=== PATIENT | female | born 1980 | race Caucasian/White ===

== ENCOUNTER 2016-05-08 07:20 | Emergency (ER) | payer MEDICAID ==
[~2016-05-08] VITALS: Wt 71.0 kg
[2016-05-08] MEDS ORDERED: ACETAMINOPHEN 500 MG TAB PO STA (08:02)
[2016-05-08] MEDS ORDERED: BEN25 PO (09:59)
[2016-05-08] MEDS ORDERED: OSLT75C PO (09:59)
[2016-05-08] MEDS ORDERED: ACET325T33 PO (09:59)
[2016-05-08 10:11] VITALS: BP 118/67; PULSE 89; RESP 18; TEMP 98.3
--- NOTE | 2016-05-08 12:15 | ERD ---
ER Documentation Chief Complaint Date/Time DATE: 05/08/16 TIME: 12:07 Chief Complaint FLU LIKE SYMPTOMS 29 WEEKS PREG HPI This is a 35-year-old female presenting to the emergency department for cough, rhinorrhea and headache 2 days. Patient states she has tactile fever at home. Did not check her temperature at home. Cough is mild and nonproductive. Headache is mild. This is not the worst headache she is ever had. Patient is currently 29 weeks with last menstrual period 11/16/2015. Patient is a A0. Denies any pelvic cramping or vaginal bleeding. Last appointment with [facility] was 5 days ago in which a pelvic ultrasound was done and patient states everything was "normal." No visual changes. no changes in memory, mood or behavior. No rashes. No dysuria or hematuria. No nausea, vomiting or diarrhea. Patient states she took Tylenol last night however continues to have symptoms. Denies chest pain, shortness of breath or difficulty breathing. No wheezing. ROS All systems reviewed and are negative except as per history of present illness. Medications Home Meds Active Scripts Acetaminophen* (Tylenol*) 325 Mg Tablet, 1 TAB PO Q6 Y for PAIN AND OR ELEVATED TEMP, #20 TAB Prov:JOYCELYN SIMMONS NP 05/08/16 Diphenhydramine Hcl* (Benadryl*) 25 Mg Cap, 25 MG PO Q6, #10 CAP Prov:JOYCELYN SIMMONS NP 05/08/16 Oseltamivir Phosphate* (Tamiflu*) 75 Mg Capsule, 75 MG PO BID for 5 Days, CAP Prov:JOYCELYN SIMMONS NP 05/08/16 Allergies Allergies: Coded Allergies: No Known Allergy (Unverified , 05/08/16) PMhx/Soc Medical and Surgical Hx: pt denies Medical Hx, pt denies Surgical Hx Hx Alcohol Use: No Hx Substance Use: No Hx Tobacco Use: No Smoking Status: Never smoker Physical Exam Vitals Vital Signs Date Time Temp Pulse Resp B/P Pulse Ox O2 Delivery O2 Flow Rate FiO2 05/08/16 10:11 98.3 89 18 118/67 98 Room Air 05/08/16 07:23 99.1 105 18 126/75 98 Physical Exam Const: Alert, no acute distress Head: Atraumatic Eyes: Normal Conjunctiva ENT: Normal External Ears, Nose and Mouth. TMs normal bilaterally. No erythema or exudate posterior pharynx. Neck: Full range of motion..~ No meningismus. Resp: Clear to auscultation bilaterally. No wheezing, rhonchi or crackles. Cardio: Regular rate and rhythm, no murmurs Abd: Soft, non tender, non distended. Normal bowel sounds Skin: No petechiae or rashes Back: No midline or flank tenderness Ext: No cyanosis, or edema Neur: Awake and alert Psych: Normal Mood and Affect Results 24 hrs Current Medications Medications (Trade) Dose Ordered Sig/Aura Route PRN Reason Start Time Stop Time Status Last Admin Dose Admin Acetaminophen (Tylenol Tab) 500 mg ONCE STAT PO 05/08/16 08:02 05/08/16 08:04 DC 05/08/16 08:07 Procedures/MDM ED COURSE: The patient was stable throughout ED course. I kept the patient and/or family informed of laboratory and diagnostic imaging results throughout the ED course. Tylenol given Microbiology influenza A negative Influenza B positive MDM:This is a 35-year-old female presenting to the emergency department for cough, rhinorrhea and headache 2 days. Physical exam is overall normal. Lung exam unremarkable. ENT exam is unremarkable. Temp of 99.1F upon arrival to ED. Tylenol given while in the ED. Influenza swab is positive for influenza B. No pelvic cramping or vaginal bleeding. Patient's vital signs remained stable. Patient is stable for discharge home. Patient's diagnosis is influenza. Patient is appropriate for outpatient management and will be given prescription for Tamiflu, Tylenol and Benadryl. Instructed patient to follow-up with primary care provider in the next 2-3 days for reassessment. Return to ED for any high fever, chest pain, difficulty breathing, shortness breath, wheezing, vomiting, diarrhea, abdominal pain or any new or worsening symptoms. Patient verbalizes understanding. All questions answered at discharge. Departure Diagnosis: Primary Impression: Influenza Condition: Stable Patient Instructions: Influenza (Flu) and Referrals: COMMUNITY CLINICS YOU HAVE RECEIVED A MEDICAL SCREENING EXAM AND THE RESULTS INDICATE THAT YOU DO NOT HAVE A CONDITION THAT REQUIRES URGENT TREATMENT IN THE EMERGENCY DEPARTMENT. FURTHER EVALUATION AND TREATMENT OF YOUR CONDITION CAN WAIT UNTIL YOU ARE SEEN IN YOUR DOCTORS OFFICE WITHIN THE NEXT 1-2 DAYS. IT IS YOUR RESPONSIBILITY TO MAKE AN APPOINTMENT FOR FOLOW-UP CARE. IF YOU HAVE A PRIMARY DOCTOR --you should call your primary doctor and schedule an appointment IF YOU DO NOT HAVE A PRIMARY DOCTOR YOU CAN CALL OUR PHYSICIAN REFERRAL HOTLINE AT IF YOU CAN NOT AFFORD TO SEE A PHYSICIAN YOU CAN CHOSE FROM THE FOLLOWING [facility] [address] [facility] [address] [facility] [address] [facility] [address] [facility] [address] [facility]. [facility] [address] [facility]. [facility] YOU HAVE RECEIVED A MEDICAL SCREENING EXAM AND THE RESULTS INDICATE THAT YOU DO NOT HAVE A CONDITION THAT REQUIRES URGENT TREATMENT IN THE EMERGENCY DEPARTMENT. FURTHER EVALUATION AND TREATMENT OF YOUR CONDITION CAN WAIT UNTIL YOU ARE SEEN IN YOUR DOCTORS OFFICE WITHIN THE NEXT 1-2 DAYS. IT IS YOUR RESPONSIBILITY TO MAKE AN APPOINTMENT FOR FOLOW-UP CARE. IF YOU HAVE A PRIMARY DOCTOR --you should call your primary doctor and schedule and appointment IF YOU DO NOT HAVE A PRIMARY DOCTOR YOU CAN CALL OUR PHYSICIAN REFERRAL HOTLINE AT . IF YOU CAN NOT AFFORD TO SEE A PHYSICIAN YOU CAN CHOSE FROM THE FOLLOWING [facility]: [facility] [address] [place] [address] [facility] [address] [place] [address] [facility] [address] [place] [address] Additional Instructions: Call your primary care doctor TOMORROW for an appointment during the next 2-3 days.See the doctor sooner or return here if your condition worsens before your appointment time. Return to ED for any high fever, chest pain, difficulty breathing, shortness breath, wheezing, vomiting, diarrhea, abdominal pain or any new or worsening symptoms. JOYCELYN SIMMONS NP May 08, 2016 12:15
== END 2016-05-08 10:12 | disposition home or self-care (01) ==
LOC: FTE 07:20
DX: O99.513 Diseases of the respiratory system complicating pregnancy, third trimester (principal); J10.1 Influenza due to other identified influenza virus with other respiratory manifestations; Z3A.29 29 weeks gestation of pregnancy
CPT/HCPCS: 87400; Z7502; Z7610; 99283

== ENCOUNTER 2016-06-25 11:40 | Outpatient (CLI) | payer MEDICAID ==
[~2016-06-25] VITALS: Ht 154.9 cm; Wt 61.0 kg
[~2016-06-25 11:40] MED LIST: ACET325T33 PO; BEN25 PO; OSLT75C PO
[2016-06-25 11:52] VITALS: Ht 154.9 cm; Wt 61.0 kg
--- NOTE | 2016-06-25 14:27 | QN ---
Documentation Comment 35 y/o female P0 at 36 weeks sent in for observation of FHTs deceleration during antepartum testing NST is R without decelerations will follow as outpatient MIRNA RAMIREZ MD Jun 25, 2016 14:27
--- NOTE | 2016-06-25 14:30 | TRIAGE ---
OB Triage Datetime Report Generated by CPN: 06/25/2016 14:30 Datetime: 06/25/2016 14:01 Labor Evaluation Frequency: X3 Monitor Mode: External Duration (sec)2399: 50-80 Quality: Mild Pattern: Normal: <= 5 Contractions in 10 Minutes Resting Tone [place]: Relaxed Heart Rate FHR Baseline Rate: 135 Monitor Mode: External US FHR Baseline Changes: No Baseline Change Variability: Moderate 6-25 bpm Accelerations: 15X15 Decelerations: None Category: Category I Pain Assessment Pain Scale: 0 Pain Presence: None/Denies Pain Type: N/A Datetime: 06/25/2016 13:00 Labor Evaluation Frequency: X4 + IRRITABILITY Monitor Mode: External Duration (sec)2399: 20-50 Quality: Mild Pattern: Normal: <= 5 Contractions in 10 Minutes Resting Tone [place]: Relaxed Heart Rate FHR Baseline Rate: 135 Monitor Mode: External US FHR Baseline Changes: No Baseline Change Variability: Moderate 6-25 bpm Accelerations: 15X15 Decelerations: None Category: Category I Pain Assessment Pain Scale: 0 Pain Presence: None/Denies Pain Type: N/A Datetime: 06/25/2016 12:00 Labor Evaluation Frequency: X2 Monitor Mode: External Duration (sec)2399: 40-50 Quality: Mild Pattern: Normal: <= 5 Contractions in 10 Minutes Resting Tone [place]: Relaxed Heart Rate FHR Baseline Rate: 135 Monitor Mode: External US FHR Baseline Changes: No Baseline Change Variability: Moderate 6-25 bpm Accelerations: 15X15 Decelerations: None Category: Category I Pain Assessment Pain Scale: 0 Pain Presence: None/Denies Pain Type: N/A Datetime: 06/25/2016 11:49 Assessment Type: Triage Maternal Assessment Level of Consciousness: Fully Conscious DTR's/Clonus: DTRs 2+; No Clonus Headache: Denies Blurred Vision: No Respiratory Effort: Unlabored; Regular Rhythm; Equal Expansion Breath Sounds, Left: Clear and Equal Breath Sounds, Right: Clear and Equal Nausea/Vomiting: Denies RUQ Epigastric Pain: Denies Lower Extremities Edema: None Degree: None Upper Extremities Edema: None Degree: None Facial Edema: None Fall Risk Assessment History of Falling: (0) No Secondary Diagnosis: (0) No Ambulatory Aid: (0) Bedrest/Nurse Assist IV Therapy: (0) No Gait: (0) Normal/Bedrest/Immobile Mental Status: (0) Oriented to Own Ability Fall Score: 0 Fall Risk Score Definition: No Risk: No action required Datetime: 06/25/2016 11:47 Time of Arrival: 06/25/2016 11:47 EGA: 36.1 Arrived By: Ambulatory Arrived From: Other Unit in Hospital Chief Complaint: FROM NST FOR EXTENDED MONITORING DUE TO DECLERATION Movement: Present Contractions: Denies/Absent Rupture of Membranes: Denies Vaginal Bleeding: None Vaginal Discharge: Denies Recent Sexual Intercouse: Denies Abdominal Trauma: Not Applicable Patient Complaints: None Time Provider Notified: 06/25/2016 12:36 Provider Notified: MARIE Initial Plan: EFM X2 HOURS
== END 2016-06-25 14:30 | disposition home or self-care (01) ==
LOC: OBT 11:40 → L-D 11:41 → OBT 14:30
PROVIDERS: ATTEND Obstetrics & Gynecology
DX: O76 Abnormality in fetal heart rate and rhythm complicating labor and delivery (principal); Z3A.36 36 weeks gestation of pregnancy
CPT/HCPCS: G0463

== ENCOUNTER 2016-07-03 14:29 | Outpatient (CLI) | payer MEDICAID ==
[~2016-07-03] VITALS: Ht 152.4 cm; Wt 63.4 kg
[2016-07-03 14:37] VITALS: BP 109/70; PULSE 80; RESP 18
[2016-07-03] MEDS ORDERED: CALC-143 PO (14:39)
[2016-07-03] MEDS ORDERED: PRENAT PO (14:39)
[2016-07-03] MEDS ORDERED: FERR236T PO (14:40)
--- NOTE | 2016-07-03 15:41 | TRIAGE ---
OB Triage Datetime Report Generated by CPN: 07/03/2016 15:41 Datetime: 07/03/2016 15:13 Labor Evaluation Frequency: 4-8 Monitor Mode: External Duration (sec)2399: 50-80 Quality: Mild Pattern: Normal: <= 5 Contractions in 10 Minutes Resting Tone [place]: Relaxed Heart Rate FHR Baseline Rate: 135 FHR Baseline Changes: No Baseline Change Variability: Moderate 6-25 bpm Accelerations: 15X15 Decelerations: None Category: Category I Datetime: 07/03/2016 14:34 Time of Arrival: 07/03/2016 14:30 EGA: 37.2 Arrived By: Ambulatory Arrived From: Home Chief Complaint: Follow up NST per MD Escobar's request Movement: Present Contractions: Denies/Absent Rupture of Membranes: Denies Vaginal Bleeding: None Vaginal Discharge: Denies Abdominal Trauma: Not Applicable Patient Complaints: None Time Provider Notified: 07/03/2016 14:53 Provider Notified: DR. ESCOBAR Initial Plan: EFM x2, THEN HAVE LABORIST EVALUATE FOR DISCHARGE Datetime: 07/03/2016 14:32 Stage of : OB Triage Assessment Type: Triage Maternal Assessment Level of Consciousness: Fully Conscious Headache: Denies Blurred Vision: No Respiratory Effort: Unlabored; Regular Rhythm; Equal Expansion Nausea/Vomiting: Denies RUQ Epigastric Pain: Denies Lower Extremities Edema: None Degree: None Upper Extremities Edema: None Degree: None Facial Edema: None Temperature Route: Oral Fall Risk Assessment History of Falling: (0) No Secondary Diagnosis: (0) No Ambulatory Aid: (0) Bedrest/Nurse Assist IV Therapy: (0) No Gait: (0) Normal/Bedrest/Immobile Mental Status: (0) Oriented to Own Ability Fall Score: 0 Fall Risk Score Definition: No Risk: No action required Pain Assessment Pain Scale: 0 Pain Presence: None/Denies Pain Type: N/A Datetime: 06/25/2016 11:49 Fall Score: 0 Fall Risk Score Definition: No Risk: No action required Datetime: 06/25/2016 11:47 EGA: 36.1
--- NOTE | 2016-08-20 13:51 | QN ---
Documentation Comment Patient being followed in NST for abnormal second trimester analyte (elevated inhibin). Study of 07/02/16 was suspicious for compromise. Given that the NST office was closed on 07/03, the patient was seen on Labor and Delivery for a repeat study. VALERIE ESCOBAR MD Aug 20, 2016 13:51
== END 2016-07-03 15:35 | disposition home or self-care (01) ==
LOC: OBT 14:29 → L-D 14:30 → OBT 15:35
PROVIDERS: ATTEND Obstetrics & Gynecology
DX: O28.0 Abnormal hematological finding on antenatal screening of mother (principal); Z3A.37 37 weeks gestation of pregnancy
CPT/HCPCS: 59025; Z7500; G0463

== ENCOUNTER 2016-07-19 08:00 | Inpatient (IN) | payer MEDICAID ==
[~2016-07-19] VITALS: Ht 152.4 cm; Wt 63.3 kg
[~2016-07-19 08:00] MED LIST changes: -ACET325T33 PO; -BEN25 PO; +CALC-143 PO; +FERR236T PO; -OSLT75C PO; +PRENAT PO
[2016-07-19] MEDS ORDERED: LIDOCAINE 1% (MPF) 30 ML INJ INJ PRN (09:00)
[2016-07-19] MEDS ORDERED: OXYTOCIN 30 UNITS/LR 500 ML IV SCH (09:00)
[2016-07-19] MEDS ORDERED: OXYTOCIN 30 UNITS/LR 500 ML IV PRN (09:00)
[2016-07-19] MEDS ORDERED: BUTORPHANOL 2 MG INJ IV PRN (09:00)
[2016-07-19] MEDS ORDERED: MISOPROSTOL 200 MCG TAB PR PRN (09:00)
[2016-07-19] MEDS ORDERED: METHYLERGONOVINE 0.2 MG INJ IM PRN (09:00)
[2016-07-19] MEDS ORDERED: CARBOPROST 250 MCG INJ IM PRN (09:00)
[2016-07-19] MEDS ORDERED: IBUPROFEN 600 MG TAB PO PRN (09:00)
[2016-07-19] MEDS: LACTATED RINGER'S 1,000 ML IV SCH ×2 (09:09→18:13)
[2016-07-19 09:11] VITALS: Ht 152.4 cm; Wt 63.3 kg
[2016-07-19 09:12] VITALS: BP 117/78; PULSE 75; RESP 18
[2016-07-19 09:35] LABS: ADD SCAN DIFF NO
[2016-07-19 09:42] LABS: BASOPHIL # 0.1 10^3/ul (0.0-0.1); BASOPHILS % 0.6 % (0.0-2.0); EOSINOPHILS # 0.7 10^3/ul (0.0-0.5); HEMATOCRIT 39.3 % (37.0-47.0); HEMOGLOBIN 13.6 g/dl (12.0-16.0); LYMPHOCYTES # 2.7 10^3/ul (0.8-2.9); LYMPHOCYTES % 21.5 % (15.0-51.0); MEAN CORPUSCULAR HEMOGLOBIN 33.1 pg (29.0-33.0); MEAN CORPUSCULAR HGB CONC 34.6 g/dl (32.0-37.0); MEAN CORPUSCULAR VOLUME 95.6 fl (82.0-101.0); MEAN PLATELET VOLUME 12.5 fl (7.4-10.4); MONOCYTE # 0.6 10^3/ul (0.3-0.9); NEUTROPHIL # 8.2 10^3/ul (1.6-7.5); NEUTROPHILS % 65.9 % (39.0-77.0); PLATELET COUNT 221 10^3/UL (140-415); RED BLOOD COUNT 4.11 10^6/ul (4.20-5.40); RED CELL DISTRIBUTION WIDTH 13.7 % (11.5-14.5); WHITE BLOOD COUNT 12.4 10^3/ul (4.8-10.8)
[2016-07-19 09:57] LABS: INR 0.86; PROTIME 11.7 Sec (12.2-14.2); PT RATIO 0.9
[2016-07-19 09:58] LABS: PARTIAL THROMBOPLASTIN TIME 26.9 Sec (25.0-35.0)
[2016-07-19] MEDS ORDERED: AMPICILLIN 2 GM/NS (PMX) 100 ML IV ONE (10:00)
[2016-07-19] MEDS ORDERED: MINERAL OIL LIGHT 10 ML VIAL TOP ONE (10:00)
[2016-07-19] MEDS ORDERED: DINOPROSTONE 10 MG VAG SUPP VAG ONE (10:00)
[2016-07-19] MEDS ORDERED: LACTATED RINGER'S 1,000 ML IV PRN (12:00)
[2016-07-19] MEDS: AMPICILLIN 1 GM/NS (PMX) 50 ML IV SCH ×3 (14:00→22:41)
--- NOTE | 2016-07-19 17:27 | HP ---
Date/Time of Note Date/Time of Note DATE: 07/19/16 TIME: 17:23 OB - History Hx of Present Free Text/Dictation admitted for elective induction at39 + weeks Last Menstrual Period: Oct 16, 2015 Estimated Due Date: July 22, 2016 : 1 Para: 0 Care: Good Care Ultrasounds: Normal mid trimester US Obstetrical Complications: None, Other Past Family/Social History * Past Medical, Surgical, Family and Obstetric Histories reviewed from chart. Blood Type: O+ Rubella: immune RPR/VDRL: Negative GBS Status: Negative HBsAG: Positive OB Admission Exam Vital Signs Vital Signs Vital Signs Date Time Temp Pulse Resp B/P Pulse Ox O2 Delivery O2 Flow Rate FiO2 07/19/16 09:12 98.8 75 18 117/78 Room Air Physical Exam HEENT: WNL Heart: Rhythm Normal Lungs: Clear, Equal Abdomen: WNL Extremities: Normal Reflexes: Normal Cervical Dilatation: None Effacement: 0% Station: -3 Membranes: Intact Heart Rate: 140's Accelerations: Accelerations Present Decelerations: Early Decelerations Varibility: Moderate Contractions on Admission: None Last 72 hours Lab Results CBC & BMP 07/19/16 09:05 OB Assessment/Plan Reason for admission: induction of labor Other Assessment: term gestation For elective induction Induction Method: per Misoprostol Protocol MIRNA RAMIREZ MD July 19, 2016 17:27
[2016-07-20] MEDS: AMPICILLIN 1 GM/NS (PMX) 50 ML IV SCH ×7 (02:20→23:41)
[2016-07-20] MEDS: LACTATED RINGER'S 1,000 ML IV SCH ×2 (03:45→12:32)
[2016-07-20] MEDS ORDERED: OXYTOCIN 30 UNITS/LR 500 ML IV SCH (10:30)
--- NOTE | 2016-07-20 17:33 | PN ---
Date/Time of Note Date/Time of Note DATE: 07/20/16 TIME: 17:32 OB Subjective Subjective Subjective C/O minimal uterine contractions OB Objective Objective Objective VSS P/E: unchanged Cx: %40 2 cm -3 OB Assessment/Plan Reason for admission: induction of labor Other Assessment: term gestation Induction Method: per Pitocin Protocol MIRNA RAMIREZ MD July 20, 2016 17:33
[2016-07-21] MEDS ORDERED: FENTAnyl 2MCG/ML-ROPIV 0.2% 100 ML ONE (03:17)
--- NOTE | 2016-07-21 04:13 | QN ---
Documentation Comment ARM done requested by Dr kirk cervix 3-4cm 80% -2 revealed cleaar fluid in moderate amount tracing good CONNOR VICTOR MD July 21, 2016 04:13
[2016-07-21] MEDS: AMPICILLIN 1 GM/NS (PMX) 50 ML IV SCH ×4 (04:22→18:27)
[2016-07-21] MEDS: LACTATED RINGER'S 1,000 ML IV SCH ×3 (08:28→12:05)
[2016-07-21] MEDS ORDERED: TERBUTALINE 1 ML ONE (10:54)
[2016-07-21] MEDS ORDERED: FENTAnyl 2MCG/ML-ROPIV 0.2% 100 ML BAG EPI SCH (12:00)
[2016-07-21] MEDS ORDERED: NALOXONE (0.4 MG/ML) INJ IV PRN (12:00)
[2016-07-21] MEDS ORDERED: ONDANSETRON 4 MG INJ IV PRN (12:00)
[2016-07-21] MEDS ORDERED: DIPHENHYDRAMINE 50 MG INJ IV PRN (12:00)
[2016-07-21] MEDS ORDERED: TERBUTALINE 1 MG/ML INJ SC ONE (12:30)
[2016-07-21] MEDS ORDERED: LACTATED RINGER'S 1,000 ML IV SCH (13:45)
--- NOTE | 2016-07-21 14:56 | QN ---
Documentation Comment patient with prolonged episode of bradycardia which was resolved Upon my arrival FHTs were category 1; Cx: C/5cm/0 station after consultation with patient decided to have limited tria of labor MIRNA RAMIREZ MD July 21, 2016 14:56
--- NOTE | 2016-07-21 17:07 | QN ---
Documentation Comment Late entry note I was called by RN due to bradycardia noted during heart monitoring. I was asked to attend and evaluate the patient was already in labor. Patient had been managed during her intrapartum course by . Sterile vaginal examination: /- vertex. No cord was palpable Tracing reviewed. Prolonged bradycardia noted that did not resolve with positioning, IV hydration and oxygen Patient was transferred to OR immediately to reevaluate in the OR. Noted that discoloration occurs with uterine contractions. At this time terbutaline was given. With positioning and terbutaline category 1 tracing noted. After 30 minutes observation in the OR patient was transferred back to labor room RICHARD HUNTLEY MD July 21, 2016 17:06
[2016-07-21] MEDS: OXYTOCIN 30 UNITS/LR 500 ML IV SCH ×2 (18:55→19:35)
[2016-07-21] MEDS ORDERED: morphine 10 MG INJ IV ONE (18:57)
[2016-07-21] MEDS ORDERED: morphine 10 MG INJ ONE (18:58)
--- NOTE | 2016-07-21 19:22 | LDN ---
Date/Time of Note Date/Time of Note DATE: 07/21/16 TIME: 19:17 Delivery Summary Vacuome Extraction of a viable infant over midline episiotomy V/E was done because of bradycardia Weeks of Gestation 39 + Assisted Vaginal Delivery: Vacuum Placenta Delivered: Spontaneously, Intact & Complete Meconium: none Episiotomy: Yes Indication for episiotomy bradycardia Laceration repair: Midline episiotomy was repaired in layers with 2 0 Vicryl and 2 0 chromic Anesthesia type: Epidural Estimated blood loss: 300 Sponge & Needle done & correct: Yes All needle counts correct: Yes Any foreign bodies felt in the: No Problems: Delivery Information Sex Sex: male Apgars 1 Minute: 5 5 Minute: 7 10 Minute: 9 Suctioning Nose & mouth suctioned at andrew: Yes Delee suction performed: No Umbilical Cord Umbilical cord with: 3 Vessels Cord presentations: no nuchal cord Cord Blood was obtained: Yes Mother & Baby Disposition Disposition Mom & Baby to Maternity; Good: Yes (mother and baby were recovered in good condition ) Mom transferred to: Other (maternity ) Baby to NICU: Yes MIRNA RAMIREZ MD July 21, 2016 19:21
[2016-07-21 21:35] VITALS: BP 127/60; PULSE 60; RESP 18
[2016-07-21] MEDS ORDERED: BENZOCAINE 20% 56 ML SPRAY TOP PRN (22:00)
[2016-07-21] MEDS ORDERED: WITCH HAZEL/GLYCERIN PAD PR PRN (22:00)
[2016-07-21] MEDS ORDERED: METHYLERGONOVINE 0.2 MG INJ IM PRN (22:00)
[2016-07-21] MEDS ORDERED: MISOPROSTOL 200 MCG TAB PR PRN (22:00)
[2016-07-21] MEDS ORDERED: ACETAMINOPHEN/CODEINE #3 TAB PO PRN ×2 (22:00)
[2016-07-21] MEDS ORDERED: ZOLPIDEM 5 MG TAB PO PRN (22:00)
[2016-07-21] MEDS ORDERED: LANOLIN 7 GM TUBE TOP PRN (22:00)
[2016-07-21] MEDS ORDERED: CARBOPROST 250 MCG INJ IM PRN (22:00)
[2016-07-21] MEDS ORDERED: OXYTOCIN 30 UNITS/LR 500 ML IV PRN (22:00)
[2016-07-21] MEDS ORDERED: DIBUCAINE 1% 30 GM OINT PR PRN (22:00)
[2016-07-21 22:05] VITALS: BP 131/72; PULSE 60; RESP 18
[2016-07-21] MEDS: LACTATED RINGER'S 1,000 ML IV* SCH (22:58)
[2016-07-21] MEDS: CEPHALEXIN 500 MG CAP PO SCH (23:59)
[2016-07-21] MEDS: IBUPROFEN 600 MG TAB PO SCH (23:59)
[2016-07-22] VITALS: BP 103/59; PULSE 63; RESP 18
[2016-07-22 04:05] VITALS: BP 104/60; PULSE 65; RESP 18
[2016-07-22] MEDS: LACTATED RINGER'S 1,000 ML IV* SCH (05:45)
[2016-07-22] MEDS: CEPHALEXIN 500 MG CAP PO SCH ×3 (05:46→17:39)
[2016-07-22] MEDS: IBUPROFEN 600 MG TAB PO SCH ×3 (05:46→17:39)
[2016-07-22 08:15] VITALS: BP 108/58; PULSE 68; RESP 68
[2016-07-22 08:39] LABS: ADD SCAN DIFF NO
[2016-07-22 09:03] LABS: BASOPHIL # 0.1 10^3/ul (0.0-0.1); BASOPHILS % 0.3 % (0.0-2.0); EOSINOPHILS # 0.8 10^3/ul (0.0-0.5); EOSINOPHILS % 4.4 % (0.0-7.0); HEMATOCRIT 30.1 % (37.0-47.0); HEMOGLOBIN 10.6 g/dl (12.0-16.0); LYMPHOCYTES # 2.4 10^3/ul (0.8-2.9); LYMPHOCYTES % 13.8 % (15.0-51.0); MEAN CORPUSCULAR HEMOGLOBIN 33.8 pg (29.0-33.0); MEAN CORPUSCULAR HGB CONC 35.2 g/dl (32.0-37.0); MEAN CORPUSCULAR VOLUME 95.9 fl (82.0-101.0); MEAN PLATELET VOLUME 12.6 fl (7.4-10.4); MONOCYTE # 1.1 10^3/ul (0.3-0.9); MONOCYTES % 6.4 % (0.0-11.0); NEUTROPHIL # 12.9 10^3/ul (1.6-7.5); NEUTROPHILS % 74.5 % (39.0-77.0); PLATELET COUNT 150 10^3/UL (140-415); RED BLOOD COUNT 3.14 10^6/ul (4.20-5.40); RED CELL DISTRIBUTION WIDTH 13.9 % (11.5-14.5); WHITE BLOOD COUNT 17.4 10^3/ul (4.8-10.8)
[2016-07-22] MEDS: SENNA/DOCUSATE NA (8.6MG/50MG) TAB PO SCH ×2 (09:24→21:52)
[2016-07-22] MEDS: MAGNESIUM HYDROXIDE 30ML CUP PO SCH ×2 (09:24→21:52)
[2016-07-22 16:13] VITALS: BP 102/55; PULSE 79; RESP 18
--- NOTE | 2016-07-22 17:52 | DS ---
Date/Time of Note Date/Time of Note home next day DATE: 07/22/16 TIME: 17:50 Obstetrical Discharge Record Final Diagnosis Final Diagnosis: Term delivered Vaginal Delivery Obstetrical Delivery: Spontaneous, Episiotomy, Repaired Complications Augmentation: Yes Induction: Yes Condition on Discharge Physical Assessment Last Vitals: see nurses notes Voiding: Yes Bowel Movement: Yes Breast: Soft, non-tender, Filling Fundus: Firm Abdomen and Incision: soft BS + Episiotomy: healing Calf Tenderness: No Patient Condition: Good MIRNA RAMIREZ MD July 22, 2016 17:52
[2016-07-22] MEDS ORDERED: IBUP-1542 PO (17:55)
--- NOTE | 2016-07-22 17:55 | PD.PPDC ---
[employer] Discharge Instruction Provider Information Physician Information 35 y/o female had vaginal delivery Diagnosis Final Diagnosis: S/P vaginal delivery Condition Patient Condition: Good Diet Diet: Resume Regular Diet Activity/Restrictions Activity: Normal Activity May Shower Restrictions: Nothing in the Vagina Return to Work or School: Sep 06, 2016 Follow-up Follow-up with Physician: 4, Week/Weeks (in clinic ) Return to clinic for OB Instructions: Breast Tenderness Depression MIRNA RAMIREZ MD July 22, 2016 17:55
[2016-07-22 20:00] VITALS: BP 99/53; PULSE 73; RESP 20
[2016-07-23] MEDS: CEPHALEXIN 500 MG CAP PO SCH ×4 (00:40→17:20)
[2016-07-23] MEDS: IBUPROFEN 600 MG TAB PO SCH ×4 (00:40→17:20)
[2016-07-23 04:45] VITALS: BP 107/59; PULSE 70; RESP 20
[2016-07-23 08:09] LABS: ADD SCAN DIFF NO
[2016-07-23 08:16] LABS: BASOPHIL # 0.1 10^3/ul (0.0-0.1); BASOPHILS % 0.4 % (0.0-2.0); EOSINOPHILS # 1.3 10^3/ul (0.0-0.5); EOSINOPHILS % 6.4 % (0.0-7.0); HEMATOCRIT 31.8 % (37.0-47.0); HEMOGLOBIN 10.8 g/dl (12.0-16.0); LYMPHOCYTES # 2.8 10^3/ul (0.8-2.9); LYMPHOCYTES % 14.4 % (15.0-51.0); MEAN CORPUSCULAR VOLUME 97.2 fl (82.0-101.0); MEAN PLATELET VOLUME 12.6 fl (7.4-10.4); MONOCYTE # 0.9 10^3/ul (0.3-0.9); MONOCYTES % 4.4 % (0.0-11.0); NEUTROPHIL # 14.4 10^3/ul (1.6-7.5); NEUTROPHILS % 73.8 % (39.0-77.0); PLATELET COUNT 166 10^3/UL (140-415); RED BLOOD COUNT 3.27 10^6/ul (4.20-5.40); RED CELL DISTRIBUTION WIDTH 14.3 % (11.5-14.5); WHITE BLOOD COUNT 19.5 10^3/ul (4.8-10.8)
[2016-07-23 09:00] VITALS: BP 107/59; PULSE 62; RESP 20
[2016-07-23] MEDS ORDERED: VARICELLA VACCINE LIVE/PF 1,350 UNIT/0.5 ML ML SC* ONE (09:00)
[2016-07-23] MEDS ORDERED: MEASLES,MUMPS,RUBELLA VACCINE INJ SC* ONE (09:00)
[2016-07-23] MEDS ORDERED: DIPHTH/TET/ACEL PERTUSS (ADULT) 0.5 ML VIAL IM* ONE (09:00)
[2016-07-23] MEDS: MAGNESIUM HYDROXIDE 30ML CUP PO SCH (09:02)
[2016-07-23] MEDS: SENNA/DOCUSATE NA (8.6MG/50MG) TAB PO SCH (09:02)
[2016-07-23 16:00] VITALS: BP 106/72; PULSE 69; RESP 20
== END 2016-07-23 18:50 | disposition home or self-care (01) | DRG 775 ==
LOC: L-D 08:25 → PP1 07-21 21:28
PROVIDERS: ADMIT Obstetrics & Gynecology; ATTEND Obstetrics & Gynecology
PROC: 10E0XZZ Delivery of Products of Conception, External Approach (ICD-10-PCS; principal; 2016-07-21)
PROC: 0W8NXZZ Division of Female Perineum, External Approach (ICD-10-PCS; 2016-07-21)
DX: O76 Abnormality in fetal heart rate and rhythm complicating labor and delivery (principal); Z37.0 Single live birth; Z3A.39 39 weeks gestation of pregnancy
CPT/HCPCS: 62319; 85025; 85610; 85730; 86592; 86900; 86901; 90715; 90716; 99464; J0290; J2270; J2590; J3010; J3105; J7120

== ENCOUNTER 2017-06-22 19:01 | Emergency (ER) | END 2017-06-22 23:10 | disposition home or self-care (01) ==